=== PATIENT | female | born 1995 | race Caucasian/White ===

== ENCOUNTER → 2016-10-06 | Outpatient (CLI) | payer OTHER ==
[~2016-10-06] MED LIST: ACET50TA PO; DIBU1OI TOP; DOCU10ELUD PO; FERR325T3 PO; IBUP600T26 PO; KEFL500C7 PO; KEPP750T3 PO; LAMI200T PO; PERC5TAB6 PO; PERCOCET PO; STUACAP PO; TYLE325T5 PO; VITMTA PO
[2016-10-06 17:17] LABS: CONTROL LINE HCG INT CTR LINE PRESENT
== END ==
LOC: M LAB 15:46
PROVIDERS: ATTEND Physician Assistant Medical
DX: Z33.1 Pregnant state, incidental (principal)

== ENCOUNTER 2016-10-23 12:25 | Emergency (ER) | payer OTHER ==
[2016-10-23 14:59] LABS: BASO % 0.1 % (0.0-1.0); EOS % 0.4 % (0.0-3.0); LARGE UNSTAINED CELL # 0.1 K/mm3 (0.0-0.4); LARGE UNSTAINED CELL % 1.2 % (0.0-4.0); LYMPH # 0.8 K/mm3 (1.5-6.5); MEAN CORPUSCULAR HEMOGLOBIN 28.2 pg (27.0-33.0); MEAN CORPUSCULAR HGB CONC 33.1 g/dl (32.0-36.5); MEAN CORPUSCULAR VOLUME 85.2 fl (80.0-96.0); MONO # 0.6 K/mm3 (0.0-0.8); MONO % 6.8 % (0.0-5.0); NEUTROPHILS # 6.7 K/mm3 (1.8-7.7); NEUTROPHILS % 81.5 % (36.0-66.0); PLATELET COUNT, AUTOMATED 162 k/mm3 (150-450); RED CELL DISTRIBUTION WIDTH 14.5 % (11.5-14.5); WHITE BLOOD COUNT 8.2 K/mm3 (4.0-10.0)
[2016-10-23] MEDS ORDERED: METOCLOPRAMIDE 10 MG TAB As Ordered ONE (15:10)
[2016-10-23] MEDS ORDERED: ACETAMINOPHEN 325 MG TAB As Ordered ONE ×2 (15:10→15:11)
[2016-10-23 15:20] LABS: ALBUMIN 2.9 GM/DL (3.2-5.2); ALBUMIN/GLOBULIN RATIO 0.73 (1.00-1.93); ALKALINE PHOSPHATASE 102 U/L (45-117); ALT/SGPT 10 U/L (12-78); ANION GAP 8 MEQ/L (8-16); AST/SGOT 3 U/L (15-37); BILIRUBIN,DIRECT 0.1 MG/DL (0.0-0.2); BILIRUBIN,TOTAL 0.7 MG/DL (0.2-1.0); BLOOD UREA NITROGEN 7 MG/DL (7-18); CALCIUM LEVEL 8.5 MG/DL (8.5-10.1); CARBON DIOXIDE LEVEL 26 MEQ/L (21-32); CHLORIDE LEVEL 103 MEQ/L (98-107); CREATININE FOR GFR 0.71 MG/DL (0.55-1.02); GLOMERULAR FILTRATION RATE > 60.0 (>60); GLUCOSE, FASTING 96 MG/DL (70-105); POTASSIUM SERUM 4.2 MEQ/L (3.5-5.1); SODIUM LEVEL 137 MEQ/L (136-145); TOTAL PROTEIN 6.9 GM/DL (6.4-8.2)
[2016-10-23 15:42] LABS: HCG, SERUM QUANTITATIVE 32597 MIU/ML
[2016-10-23] MEDS ORDERED: NITROFURANTOIN (MACROBID) 100 MG CAP As Ordered ONE (17:36)
--- NOTE | 2016-10-23 17:36 | REP ---
Obstetric ultrasound: There are no prior studies. There is a single intrauterine gestation in a vertex presentation. There is movement. The heart rate is 157 beats per minute. The placenta is posterior and lateral right lateral with no previa or abruptio. Placenta is grade 0 maturity. The amniotic fluid volume subjectively is normal. The cervix is 3.3 cm length. The maternal adnexa and cul-de-sac are unremarkable. Based on today's measurements gestational age is 20 weeks 2 days with an KALE of 03/10/2017. weight is 368 grams (0 pounds, 12 ounces). This is the 58th percentile for 20 weeks 2 days The following anatomic structures are identified and are unremarkable: Cranium, choroid plexus, cavum septum pellucidum, posterior fossa/cerebellum, face/facial profile, lungs, four-chamber heart, diaphragm, stomach, cord insertion, three-vessel cord, bladder, spine and upper lower extremities. Suboptimally demonstrated are the cardiac right and left ventricular outflow tracts and kidneys. A followup study dedicated to these structures might be considered. Otherwise, no anomalies are identified. . Signed by Thomas Barker MD 10/23/2016 05:27 P
--- NOTE | 2016-10-23 17:46 | EDDOCDS ---
Nurse's Notes [facility] Name: Ashtyn Curtis Age: 21 yrs Sex: Female : 1995 Arrival Date: 10/23/2016 Time: 12:25 Bed PD Private MD: NO PRIMARY PHYSICIAN, . Diagnosis: Urinary tract infection, site not specified;Calculus of kidney and ureter-Moderate Right-Sided Hydronephrosis, normal metabolic panel; related conditions, unspecified, second trimester-SIUP 20 weeks 2 days Presentation: 10/23 13:05 Presenting complaint: Patient states: right flank pain started early this morning, I've cjh had kidney stones before, it's calmed down a lot but still having pain and I am don't know how far. Acute neurological deficits are not present. Mechanism of Injury: No Mechanism of Injury. Adult Sepsis Screening: The patient does not have new or worsening altered mentation. Patient's respiratory rate is less than 22. Systolic blood pressure is greater than 100. Patient has a qSOFA score of 0- Negative Sepsis Screen. Suicide/Homicide risk assessment- the patient denies having any suicidal and/or homicidal ideations and does not present with any other emotional, behavioral or mental health complaints. Status: Patient is not a information services consultant or dependent. Transition of care: patient was not received from another setting of care. 13:05 Acuity: GRACE Level 3 [facility] 13:05 Method Of Arrival: Walkin/Carried/Asstd [facility] Triage Assessment: 13:08 General: Appears in no apparent distress, comfortable, Behavior is appropriate for age, [facility] cooperative. Pain: Location: posterior aspect of right lateral abdomen Pain currently is 7 out of 10 on a pain scale. HIV screening NA for this visit Offered previously. : Reports none. Musculoskeletal: Range of motion intact in all extremities. ALLIANCES CONSULTANT: 13:08 LMP N/A - Recent , patient states she is but no menses since delivered [facility] 6-months previous so states no idea how far along, had home test and blood work to confirm reported Historical: - Allergies: Ibuprofen (Hives); - Home Meds: 1. ferrous sulfate 325 mg (65 mg iron) Oral TbEC daily (Last dose: Unknown) - PMHx: Anemia; - PSHx: ; - Social history: Smoking status: Patient uses tobacco products, heavy tobacco smoker. No barriers to communication noted. - Family history: Not pertinent. - : The pt / caregiver states he / she is not on anticoagulants. Home medication list is obtained from the patient. - Exposure Risk Screening:: None identified. Screenin:13 Screening information is obtained from the patient. Fall risk: No risks identified. kr3 Assistance ADL's: requires no assistance with activities of daily living. Abuse/DV Screen: The patient / caregiver reports he/she is: not in a situation that causes fear, pain or injury. Nutritional screening: No deficits noted. Advance Directives: Currently, there is no health care proxy. home support is adequate. Assessment: 15:13 Reassessment: Patient appears in no apparent distress at this time. Pain: Location: kr3 right flank Pain currently is 6 out of 10 on a pain scale. Respiratory: Respiratory effort is even, unlabored. Derm: Skin is normal. 17:06 Reassessment: Patient appears in no apparent distress at this time. Reassessment: kr3 informed that provider would be in to discuss results after speaking with Dr Yeboha. Pain: Location: right flank Pain currently is 3 out of 10 on a pain scale. 17:45 General: Appears in no apparent distress. Pain: Denies pain. Neurological: Level of ld5 Consciousness is awake, alert. Respiratory: Airway is patent Respiratory effort is even, unlabored. Vital Signs: 12:27 BP 91 / 59; Pulse 120; Resp 18 S; Temp 97.9(O); Pulse Ox 98% on R/A; Weight 49.9 kg gr2 (M); Height 5 ft. 2 in. (157.48 cm) (R); Pain 6/10; 17:09 BP 105 / 63; Pulse 96; Resp 16; Temp 97.6(O); Pulse Ox 100% on R/A; kr3 17:38 BP 99 / 57; Pulse 99; Resp 16; Temp 98.4(TE); Pulse Ox 98% on R/A; Pain 0/10; sew 12:27 Body Mass Index 20.12 (49.90 kg, 157.48 cm) gr2 Vitals: 12:27 Log In Time: October 23, 2016 at 12:27. gr2 ED Course: 12:26 Patient visited by Rito Hamilton. gr2 12:26 Patient moved to Waiting gr2 12:27 NO PRIMARY PHYSICIAN, . is Private Physician. gr2 12:29 Patient visited by Rito Hamilton. gr2 12:29 Patient moved to Pre RCE gr2 13:07 Triage Initiated cjh 14:21 Patient moved to PR2 / 26 sew 14:37 BLOOD CULTURES Sent. sew 14:37 BMP Sent. sew 14:37 CBC with Diff Sent. sew 14:37 Lipase Sent. sew 14:37 Liver Profile Sent. sew 14:37 Urinalysis Sent. sew 14:37 Labs drawn. (by ED staff). Sent per order to lab. Labs/Blood culture drawn Urine sew collected. Clean catch specimen. Urine specimen sent to lab. 14:39 Patient visited by Effie Saeed. sew 14:43 Patient visited by Effie Saeed. sew 14:43 BLOOD CULTURES Sent. sew 14:43 Labs/Blood culture drawn. sew 14:44 Patient moved to Triage 1 kr3 15:01 Yaritza Erazo PA-C is PHCP. ef1 15:01 Jose G Sanches MD is Attending Physician. ef1 15:02 Patient visited by Yaritza Erazo PA-C. ef1 15:12 Patient moved to TR1 kr3 15:14 The patient / caregiver is instructed regarding the plan of care and ED course. Patient kr3 has correct armband on for positive identification. 15:14 Urine Culture Sent. kr3 15:15 [facility] Payment Agreement was scanned into [employer] and attached to record. gjb 15:18 Patient name changed from Ashtyn\S\Tamar\S\Curtis\S\ to Ashtyn\S\P\S\Curtis. EDMS 15:29 Patient visited by Yaritza Erazo PA-C. ef1 16:11 Patient visited by Yaritza Erazo PA-C. ef1 16:52 Patient visited by Yaritza Erazo PA-C. ef1 17:04 Patient moved to I6 kr3 17:05 Patient moved to PD2 kr3 17:09 No IV's were initiated during this patient's visit. No procedures done that require kr3 assistance. 17:31 Patient visited by Yaritza Erazo PA-C. ef1 17:37 Nam Mcdaniel is Referral Physician. ef1 17:38 US OBS FRANNY GEST Returned. kr3 17:39 Patient visited by Effie Saeed. sew 17:46 Patient visited by Pao Campoverde RN. ld5 Administered Medications: 15:13 Drug: Metoclopramide 10 mg [metoclopramide 10 mg tablet (1 tabs)] Route: PO; kr3 15:13 Drug: Acetaminophen 650 mg [acetaminophen 325 mg tablet (2 tabs)] Route: PO; kr3 17:37 Drug: Nitrofurantoin 100 mg Route: PO; kr3 Point of Care Testing: Urine : 14:38 hCG Reading: Positive; Control Reading: Positive; sew Ranges: Order Results: Lab Order: BMP; SPEC'M 10/23/16 14:33 Test: GLUCOSE, FASTING; Value: 96; Range: 70-105; Units: MG/DL; Status: F Test: BLOOD UREA NITROGEN; Value: 7; Range: 7-18; Units: MG/DL; Status: F Test: CREATININE FOR GFR; Value: 0.71; Range: 0.55-1.02; Units: MG/DL; Status: F Test: GLOMERULAR FILTRATION RATE; Value: > 60.0; Range: >60; Status: F Test: SODIUM LEVEL; Value: 137; Range: 136-145; Units: MEQ/L; Status: F Test: POTASSIUM SERUM; Value: 4.2; Range: 3.5-5.1; Units: MEQ/L; Status: F Test: CHLORIDE LEVEL; Value: 103; Range: 98-107; Units: MEQ/L; Status: F Test: CARBON DIOXIDE LEVEL; Value: 26; Range: 21-32; Units: MEQ/L; Status: F Test: ANION GAP; Value: 8; Range: 8-16; Units: MEQ/L; Status: F Test: CALCIUM LEVEL; Value: 8.5; Range: 8.5-10.1; Units: MG/DL; Status: F Test Note: ; Units are mL/min/1.73 m2 Chronic Kidney Disease Staging per NKF: Stage I & II GFR >=60 Normal to Mildly Decreased Stage III GFR 30-59 Moderately Decreased Stage IV GFR 15-29 Severely Decreased Stage V GFR <15 Very Little GFR Left ESRD GFR <15 on [employer]IN DRIVER Lab Order: CBC with Diff; SPEC'M 10/23/16 14:33 Test: WHITE BLOOD COUNT; Value: 8.2; Range: 4.0-10.0; Units: K/mm3; Status: F Test: RED BLOOD COUNT; Value: 3.77; Range: 4.00-5.40; Abnormal: Below low normal; Units: M/mm3; Status: F Test: HEMOGLOBIN; Value: 10.6; Range: 12.0-16.0; Abnormal: Below low normal; Units: g/dl; Status: F Test: HEMATOCRIT; Value: 32.1; Range: 36.0-47.0; Abnormal: Below low normal; Units: %; Status: F Test: MEAN CORPUSCULAR VOLUME; Value: 85.2; Range: 80.0-96.0; Units: fl; Status: F Test: MEAN CORPUSCULAR HEMOGLOBIN; Value: 28.2; Range: 27.0-33.0; Units: pg; Status: F Test: MEAN CORPUSCULAR HGB CONC; Value: 33.1; Range: 32.0-36.5; Units: g/dl; Status: F Test: RED CELL DISTRIBUTION WIDTH; Value: 14.5; Range: 11.5-14.5; Units: %; Status: F Test: PLATELET COUNT, AUTOMATED; Value: 162; Range: 150-450; Units: k/mm3; Status: F Test: NEUTROPHILS %; Value: 81.5; Range: 36.0-66.0; Abnormal: Above high normal; Units: %; Status: F Test: LYMPH %; Value: 10.0; Range: 24.0-44.0; Abnormal: Below low normal; Units: %; Status: F Test: MONO %; Value: 6.8; Range: 0.0-5.0; Abnormal: Above high normal; Units: %; Status: F Test: EOS %; Value: 0.4; Range: 0.0-3.0; Units: %; Status: F Test: BASO %; Value: 0.1; Range: 0.0-1.0; Units: %; Status: F Test: LARGE UNSTAINED CELL %; Value: 1.2; Range: 0.0-4.0; Units: %; Status: F Test: NEUTROPHILS #; Value: 6.7; Range: 1.8-7.7; Units: K/mm3; Status: F Test: LYMPH #; Value: 0.8; Range: 1.5-6.5; Abnormal: Below low normal; Units: K/mm3; Status: F Test: MONO #; Value: 0.6; Range: 0.0-0.8; Units: K/mm3; Status: F Test: EOS #; Value: 0.0; Range: 0.0-0.50; Units: K/mm3; Status: F Test: BASO #; Value: 0.0; Range: 0.0-0.2; Units: K/mm3; Status: F Test: LARGE UNSTAINED CELL #; Value: 0.1; Range: 0.0-0.4; Units: K/mm3; Status: F Lab Order: Lipase; [facility] 10/23/16 14:33 Test: LIPASE; Value: 55; Range: 73-393; Abnormal: Below low normal; Units: U/L; Status: F Lab Order: Liver Profile; [facility] 10/23/16 14:33 Test: AST/SGOT; Value: 3; Range: 15-37; Abnormal: Below low normal; Units: U/L; Status: F Test: ALT/SGPT; Value: 10; Range: 12-78; Abnormal: Below low normal; Units: U/L; Status: F Test: ALKALINE PHOSPHATASE; Value: 102; Range: 45-117; Units: U/L; Status: F Test: BILIRUBIN,TOTAL; Value: 0.7; Range: 0.2-1.0; Units: MG/DL; Status: F Test: BILIRUBIN,DIRECT; Value: 0.1; Range: 0.0-0.2; Units: MG/DL; Status: F Test: TOTAL PROTEIN; Value: 6.9; Range: 6.4-8.2; Units: GM/DL; Status: F Test: ALBUMIN; Value: 2.9; Range: 3.2-5.2; Abnormal: Below low normal; Units: GM/DL; Status: F Test: ALBUMIN/GLOBULIN RATIO; Value: 0.73; Range: 1.00-1.93; Abnormal: Below low normal; Status: F Lab Order: Urinalysis; SPEC' 10/23/16 14:33 Test: APPEARANCE, URINE; Value: TURBID; Range: CLEAR; Abnormal: Above high normal; Status: F Test: COLOR, URINE; Value: LUCI; Range: YELLOW; Status: F Test: PH,URINE; Value: 6.0; Range: 5.0-9.0; Units: UNITS; Status: F Test: SPECIFIC GRAVITY URINE AUTO; Value: 1.009; Range: 1.002-1.035; Status: F Test: PROTEIN, URINE AUTO; Value: 2+; Range: NEGATIVE; Abnormal: Above high normal; Units: mg/dL; Status: F Test: GLUCOSE, URINE (UA) AUTO; Value: NEGATIVE; Range: NEGATIVE; Units: mg/dL; Status: F Test: KETONE, URINE AUTO; Value: NEGATIVE; Range: NEGATIVE; Units: mg/dL; Status: F Test: UROBILINOGEN, URINE AUTO; Value: 0.2; Range: 0.0-2.0; Units: mg/dL; Status: F Test: BILIRUBIN, URINE AUTO; Value: NEGATIVE; Range: NEGATIVE; Status: F Test: NITRITE, URINE AUTO; Value: NEGATIVE; Range: NEGATIVE; Status: F Test: LEUKOCYTE ESTERASE, URINE AUTO; Value: 3+; Range: NEGATIVE; Abnormal: Above high normal; Status: F Test: BLOOD, URINE BLOOD; Value: 1+; Range: NEGATIVE; Abnormal: Above high normal; Status: F Test: WBC, URINE AUTO; Value: TNTC; Range: 0-3; Abnormal: Above high normal; Units: /HPF; Status: F Test: RBC, URINE AUTO; Value: 24; Range: 0-3; Abnormal: Above high normal; Units: /HPF; Status: F Test: BACTERIA, URINE AUTO; Value: 3+; Range: NEGATIVE; Abnormal: Above high normal; Status: F Test: SQUAMOUS EPITHELIAL CELL UR AU; Value: 9; Range: 0-6; Units: /HPF; Status: F Test: MUCUS, URINE; Value: SMALL; Range: NEGATIVE; Status: F Test: HYALINE CAST, URINE AUTO; Value: 0; Range: 0-1; Units: /LPF; Status: F Lab Order: HCG, SERUM QUANTITATIVE; SPEC'M 10/23/16 14:33 Test: HCG, SERUM QUANTITATIVE; Value: 34475; Units: MIU/ML; Status: F Test Note: ; GESTATIONAL AGE APPROXIMATE HCG RANGE (MIU/ML) 0.2-1 WEEK 5-50 1-2 WEEKS 50-500 2-3 WEEKS 100-5,000 3-4 WEEKS 500-10,000 4-5 WEEKS 1,000-50,000 5-6 WEEKS 10,000-100,000 6-8 WEEKS 15,000-200,000 2-3 MONTHS 10,000-100,000 NON FEMALES LESS THAN 3.0 Patient samples may contain human heterophilic antibodies that could react with immunoassays to give falsely elevated or depressed results. This assay has been designed to minimize interference from heterophilic antibodies. Elevated hCG levels have also been associated with trophoblastic disease and nontrophoblastic neoplasms. The possibility of having these diseases should be considered before a diagnosis of is made. This test is not intended for use as a surrogate marker for aiding in the diagnosis or monitoring the treatment of cancer patients. [employer] methodology. Radiology Order: US OBS SINGEL GEST Test: US OBS SINGEL GEST REASON FOR EXAMINATION: abd pain, ; Obstetric ultrasound:; ; There are no prior studies.; ; There is a single intrauterine gestation in a vertex presentation. There is; movement. The heart rate is 157 beats per minute. The placenta is; posterior and lateral right lateral with no previa or abruptio. Placenta is; grade 0 maturity.; ; The amniotic fluid volume subjectively is normal.; ; The cervix is 3.3 cm length.; ; The maternal adnexa and cul-de-sac are unremarkable.; ; Based on today's measurements gestational age is 20 weeks 2 days with an KALE of; 03/10/2017.; ; weight is 368 grams (0 pounds, 12 ounces). This is the 58th percentile for; 20 weeks 2 days; ; The following anatomic structures are identified and are unremarkable:; ; Cranium, choroid plexus, cavum septum pellucidum, posterior fossa/cerebellum,; face/facial profile, lungs, four-chamber heart, diaphragm, stomach, cord; insertion, three-vessel cord, bladder, spine and upper lower extremities.; ; Suboptimally demonstrated are the cardiac right and left ventricular outflow; tracts and kidneys. A followup study dedicated to these structures might be; considered.; ; Otherwise, no anomalies are identified. .; ; ; Signed by; Thomas Barker MD 10/23/2016 05:27 P; Outcome: 17:06 Ultrasound Study completed. kr3 17:37 Discharge ordered by Provider. ef1 17:45 Discharge Assessment: Patient awake, alert and oriented x 3. No cognitive and/or ld5 functional deficits noted. Patient verbalized understanding of disposition instructions. patient administered narcotics - no. The following High Risk Discharge criteria are identified: None. Discharged to home ambulatory. Condition: stable. Discharge instructions given to patient, Instructed on discharge instructions, follow up and referral plans. medication usage, Demonstrated understanding of instructions, medications, Pt was receptive of discharge instructions/ teaching. Prescriptions given X 2. Property :Personal belongings accompany Pt. 17:46 Patient left the ED. ld5 Signatures: Dispatcher [employer] Celina Betancourt,RN RN kr3 Yaritza Erazo, PA-C PA-C ef1 Pao Campoverde,RN RN ld5 Kristine GuoRN RN basim Christophe, Rito Ray 2 Guera [place] Corrections: (The following items were deleted from the chart) 15:14 15:08 HCG, SERUM QUANTITATIVE+LAB sent. tana CORTES MTDAngela
--- NOTE | 2016-10-23 17:46 | EDDOCDS ---
Physician Documentation [facility] Name: Ashtyn Curtis Age: 21 yrs Sex: Female : 1995 Arrival Date: 10/23/2016 Time: 12:25 Bed PD Private MD: NO PRIMARY PHYSICIAN, . Disposition: 10/23/16 17:37 Discharged to Home/Self Care. Impression: Urinary tract infection, site not specified, Calculus of kidney and ureter - Moderate Right-Sided Hydronephrosis, normal metabolic panel, related conditions, unspecified, second trimester - SIUP 20 weeks 2 days. - Condition is Stable. - Discharge Instructions: Kidney Stones, [id number], Urinary Tract Infection, Mpao-va-Mwuy, Abdominal Pain During , Unmq-xi-[id number], Second Trimester of , [id number]. - Prescriptions for Reglan 10 mg Oral Tablet - take 1 tablet by ORAL route every 6 hours take 30 minutes before meals and at bedtime; 20 tablet. Macrobid 100 mg Oral Capsule - take 100 milligram by ORAL route every 12 hours for 10 days; 20 capsule. - Medication Reconciliation, Local Pharmacy Hours form. - Follow up: Nam Mcdaniel; When: 1 - 2 days; Reason: Further diagnostic work-up, Recheck today's complaints, Continuance of care. Follow up: Emergency Department; Reason: Worsening of conditions. - Problem is new. - Symptoms have improved. Historical: - Allergies: Ibuprofen (Hives); - Home Meds: 1. ferrous sulfate 325 mg (65 mg iron) Oral TbEC daily (Last dose: Unknown) - PMHx: Anemia; - PSHx: ; - Social history: Smoking status: Patient uses tobacco products, heavy tobacco smoker. No barriers to communication noted. - Family history: Not pertinent. - : The pt / caregiver states he / she is not on anticoagulants. Home medication list is obtained from the patient. - Exposure Risk Screening:: None identified. CLIENT ADVISOR: 10/23 13:08 LMP N/A - Recent , patient states she is but no menses since [facility] previous so states no idea how far along, had home test and blood work to confirm reported Vital Signs: 12:27 BP 91 / 59; Pulse 120; Resp 18 S; Temp 97.9(O); Pulse Ox 98% on R/A; Weight 49.9 kg / gr2 110.01 lbs (M); Height 5 ft. 2 in. (157.48 cm) (R); Pain 6/10; 17:09 BP 105 / 63; Pulse 96; Resp 16; Temp 97.6(O); Pulse Ox 100% on R/A; kr3 17:38 BP 99 / 57; Pulse 99; Resp 16; Temp 98.4(TE); Pulse Ox 98% on R/A; Pain 0/10; sew 12:27 Body Mass Index 20.12 (49.90 kg, 157.48 cm) gr2 MDM: 14:07 -Blood Culture (Adults Only), peripheral from different site, or from device/port/PICC kr3 etc. if present ordered. 14:07 If pre-RCE wait time >60 minutes, inform reg. staff to do full reg ordered. kr3 14:07 If pt is female >10yo <50yo order UCG ordered. kr3 14:07 Undress patient appropriately for examination ordered. kr3 14:07 UCG by Nursing ordered. kr3 14:08 BMP Ordered. EDMS 14:08 CBC with Diff Ordered. EDMS 14:08 Lipase Ordered. EDMS 14:08 Liver Profile Ordered. EDMS 14:08 Urinalysis Ordered. EDMS 14:20 -Blood Culture (Adults Only), peripheral from different site, or from device/port/PICC sew etc. if present complete. 14:21 BLOOD CULTURES Ordered. EDMS 14:39 BLOOD CULTURES Ordered. EDMS 15:05 CBC with Diff Reviewed. ef1 15:06 Metoclopramide 10 mg PO once ordered. ef1 15:06 Acetaminophen Tablet 650 mg PO once ordered. ef1 15:07 Renal US Ordered. EDMS 15:08 NOTHING BY MOUTH+DIET ordered. EDMS 15:13 Urine Culture Ordered. EDMS 15:14 Financial registration complete. gjb 15:14 HCG, SERUM QUANTITATIVE Ordered. EDMS 15:15 [facility] Payment Agreement was scanned into ebridge and attached to record. gjb 16:30 US OBS SINGEL GEST Ordered. EDMS 16:53 Lipase Reviewed. ef1 16:53 Liver Profile Reviewed. ef1 16:53 Urinalysis Reviewed. ef1 16:53 BMP Reviewed. ef1 16:53 HCG, SERUM QUANTITATIVE Reviewed. ef1 17:34 Nitrofurantoin 100 mg PO once ordered. ef1 Point of Care Testing: Urine : 14:38 hCG Reading: Positive; Control Reading: Positive; sew Ranges: Administered Medications: 15:13 Drug: Metoclopramide 10 mg [metoclopramide 10 mg tablet (1 tabs)] Route: PO; kr3 15:13 Drug: Acetaminophen 650 mg [acetaminophen 325 mg tablet (2 tabs)] Route: PO; kr3 17:37 Drug: Nitrofurantoin 100 mg Route: PO; kr3 Signatures: Dispatcher [employer] EDMS Celina TaylorRN RN kr3 Yaritza Erazo PA-C PAMel ef1 Poa CampoverdeRN RN ld5 Kristine GuoRN RN [facility] Christophe, Guera [place] The chart was reviewed and I authenticate all verbal orders and agree with the evaluation and treatment provided.Corrections: (The following items were deleted from the chart) 15:14 15:08 HCG, SERUM QUANTITATIVE+LAB ordered. EDMS EDMS 16:30 15:07 1ST TRIMESTER US+US ordered. EDMS EDMS Attachments: 15:15 [facility] Payment Agreement marilou MTDD
--- NOTE | 2016-10-24 08:46 | REP ---
Urinary tract sonography: History: Renal colic. . Findings: Scanning at the level of the urinary bladder shows emptying ureteral jets from the left ureter only on color Doppler interrogation of the bladder lumen. No right ureteral jet is seen. There is moderate hydronephrosis affecting the right kidney. Renal cortical echogenicity pattern is normal. No hydronephrosis is seen on the left. The right kidney measures 10.2 x 4.5 x 5.1 cm. Left renal dimensions are 10.0 x 4.1 x 5.1 cm. No renal mass or cyst is seen. No stone is visible. Resistive indices are 0.57 on the left and 0.63 on the right. Impression: Moderate right-sided hydronephrosis. Somewhat elevated resistive index. Absence of ureteral emptying jet from the right ureter on color Doppler interrogation of the bladder lumen. Findings consistent with obstructive uropathy on the right side. Signed by Max Gonzalez MD 10/24/2016 09:04 A
--- NOTE | 2016-10-25 18:46 | EDDOCDS ---
Physician Documentation [facility] Name: Ashtyn Curtis Age: 21 yrs Sex: Female : 1995 Arrival Date: 10/23/2016 Time: 12:25 Bed PD Private MD: NO PRIMARY PHYSICIAN, . Disposition: 10/23/16 17:37 Discharged to Home/Self Care. Impression: Urinary tract infection, site not specified, Calculus of kidney and ureter - Moderate Right-Sided Hydronephrosis, normal metabolic panel, related conditions, unspecified, second trimester - SIUP 20 weeks 2 days. - Condition is Stable. - Discharge Instructions: Kidney Stones, Dbvc-it-Zlqd, Urinary Tract Infection, Dbqt-de-Vsgy, Abdominal Pain During , Rwec-pj-Teey, Second Trimester of , Orwo-ro-Csew. - Prescriptions for Reglan 10 mg Oral Tablet - take 1 tablet by ORAL route every 6 hours take 30 minutes before meals and at bedtime; 20 tablet. Macrobid 100 mg Oral Capsule - take 100 milligram by ORAL route every 12 hours for 10 days; 20 capsule. - Medication Reconciliation, Local Pharmacy Hours form. - Follow up: Nam Mcdaniel; When: 1 - 2 days; Reason: Further diagnostic work-up, Recheck today's complaints, Continuance of care. Follow up: Emergency Department; Reason: Worsening of conditions. - Problem is new. - Symptoms have improved. Historical: - Allergies: Ibuprofen (Hives); - Home Meds: 1. ferrous sulfate 325 mg (65 mg iron) Oral TbEC daily (Last dose: Unknown) - PMHx: Anemia; - PSHx: ; - Social history: Smoking status: Patient uses tobacco products, heavy tobacco smoker. No barriers to communication noted. - Family history: Not pertinent. - : The pt / caregiver states he / she is not on anticoagulants. Home medication list is obtained from the patient. - Exposure Risk Screening:: None identified. 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 2 in. (157.48 cm) (R); Pain 6/10; 17:09 BP 105 / 63; Pulse 96; Resp 16; Temp 97.6(O); Pulse Ox 100% on R/A; kr3 17:38 BP 99 / 57; Pulse 99; Resp 16; Temp 98.4(TE); Pulse Ox 98% on R/A; Pain 0/10; sew 12:27 Body Mass Index 20.12 (49.90 kg, 157.48 cm) gr2 MDM: 14:07 -Blood Culture (Adults Only), peripheral from different site, or from device/port/PICC kr3 etc. if present ordered. 14:07 If pre-RCE wait time >60 minutes, inform reg. staff to do full reg ordered. kr3 14:07 If pt is female >10yo <50yo order UCG ordered. kr3 14:07 Undress patient appropriately for examination ordered. kr3 14:07 UCG by Nursing ordered. kr3 14:08 BMP Ordered. EDMS 14:08 CBC with Diff Ordered. EDMS 14:08 Lipase Ordered. EDMS 14:08 Liver Profile Ordered. EDMS 14:08 Urinalysis Ordered. EDMS 14:20 -Blood Culture (Adults Only), peripheral from different site, or from device/port/PICC sew etc. if present complete. 14:21 BLOOD CULTURES Ordered. EDMS 14:39 BLOOD CULTURES Ordered. EDMS 15:05 CBC with Diff Reviewed. ef1 15:06 Metoclopramide 10 mg PO once ordered. ef1 15:06 Acetaminophen Tablet 650 mg PO once ordered. ef1 15:07 Renal US Ordered. EDMS 15:08 NOTHING BY MOUTH+DIET ordered. EDMS 15:13 Urine Culture Ordered. EDMS 15:14 Financial registration complete. gjb 15:14 HCG, SERUM QUANTITATIVE Ordered. EDMS 15:15 [facility] Payment Agreement was scanned into [employer] and attached to record. gjb 16:30 US OBS SINGEL GEST Ordered. EDMS 16:53 Lipase Reviewed. ef1 16:53 Liver Profile Reviewed. ef1 16:53 Urinalysis Reviewed. ef1 16:53 BMP Reviewed. ef1 16:53 HCG, SERUM QUANTITATIVE Reviewed. ef1 17:34 Nitrofurantoin 100 mg PO once ordered. ef1 10/24 18:08 T-Sheet-- Draft Copy was scanned into [employer] and attached to record. shiraz Point of Care Testing: Urine : 10/23 14:38 hCG Reading: Positive; Control Reading: Positive; sew Ranges: Administered Medications: 15:13 Drug: Metoclopramide 10 mg [metoclopramide 10 mg tablet (1 tabs)] Route: PO; kr3 15:13 Drug: Acetaminophen 650 mg [acetaminophen 325 mg tablet (2 tabs)] Route: PO; kr3 17:37 Drug: Nitrofurantoin 100 mg Route: PO; kr3 Signatures: Dispatcher [employer] EDMS Celina Taylor RN RN kr3 Yaritza Erazo, MITCHELL PAMel ef1 Pao Campoverde RN RN ld5 Kristine GuoRN CATHERINE [facility] Christophe, Guera Barajas Kathie klr The chart was reviewed and I authenticate all verbal orders and agree with the evaluation and treatment provided.Corrections: (The following items were deleted from the chart) 15:14 15:08 HCG, SERUM QUANTITATIVE+LAB ordered. EDMS EDMS 16:30 15:07 1ST TRIMESTER US+US ordered. EDMS EDMS Attachments: 15:15 [facility] Payment Agreement [facility] 10/24 18:08 T-Sheet-- Draft Copy klr Chart Complete MTDD
--- NOTE | 2016-10-25 18:46 | EDDOCDS ---
Physician Documentation [facility] Name: Ashtyn Curtis Age: 21 yrs Sex: Female : 1995 Arrival Date: 10/23/2016 Time: 12:25 Bed PD Private MD: NO PRIMARY PHYSICIAN, . Disposition: 10/23/16 17:37 Discharged to Home/Self Care. Impression: Urinary tract infection, site not specified, Calculus of kidney and ureter - Moderate Right-Sided Hydronephrosis, normal metabolic panel, related conditions, unspecified, second trimester - SIUP 20 weeks 2 days. - Condition is Stable. - Discharge Instructions: Kidney Stones, Avvr-vh-Dxtc, Urinary Tract Infection, Avqs-ya-Drfe, Abdominal Pain During , Nvyq-ml-Udmm, Second Trimester of , Jtso-mf-Cids. - Prescriptions for Reglan 10 mg Oral Tablet - take 1 tablet by ORAL route every 6 hours take 30 minutes before meals and at bedtime; 20 tablet. Macrobid 100 mg Oral Capsule - take 100 milligram by ORAL route every 12 hours for 10 days; 20 capsule. - Medication Reconciliation, Local Pharmacy Hours form. - Follow up: Nam Mcdaniel; When: 1 - 2 days; Reason: Further diagnostic work-up, Recheck today's complaints, Continuance of care. Follow up: Emergency Department; Reason: Worsening of conditions. - Problem is new. - Symptoms have improved. Historical: - Allergies: Ibuprofen (Hives); - Home Meds: 1. ferrous sulfate 325 mg (65 mg iron) Oral TbEC daily (Last dose: Unknown) - PMHx: Anemia; - PSHx: ; - Social history: Smoking status: Patient uses tobacco products, heavy tobacco smoker. No barriers to communication noted. - Family history: Not pertinent. - : The pt / caregiver states he / she is not on anticoagulants. Home medication list is obtained from the patient. - Exposure Risk Screening:: None identified. 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 2 in. (157.48 cm) (R); Pain 6/10; 17:09 BP 105 / 63; Pulse 96; Resp 16; Temp 97.6(O); Pulse Ox 100% on R/A; kr3 17:38 BP 99 / 57; Pulse 99; Resp 16; Temp 98.4(TE); Pulse Ox 98% on R/A; Pain 0/10; sew 12:27 Body Mass Index 20.12 (49.90 kg, 157.48 cm) gr2 MDM: 14:07 -Blood Culture (Adults Only), peripheral from different site, or from device/port/PICC kr3 etc. if present ordered. 14:07 If pre-RCE wait time >60 minutes, inform reg. staff to do full reg ordered. kr3 14:07 If pt is female >10yo <50yo order UCG ordered. kr3 14:07 Undress patient appropriately for examination ordered. kr3 14:07 UCG by Nursing ordered. kr3 14:08 BMP Ordered. EDMS 14:08 CBC with Diff Ordered. EDMS 14:08 Lipase Ordered. EDMS 14:08 Liver Profile Ordered. EDMS 14:08 Urinalysis Ordered. EDMS 14:20 -Blood Culture (Adults Only), peripheral from different site, or from device/port/PICC sew etc. if present complete. 14:21 BLOOD CULTURES Ordered. EDMS 14:39 BLOOD CULTURES Ordered. EDMS 15:05 CBC with Diff Reviewed. ef1 15:06 Metoclopramide 10 mg PO once ordered. ef1 15:06 Acetaminophen Tablet 650 mg PO once ordered. ef1 15:07 Renal US Ordered. EDMS 15:08 NOTHING BY MOUTH+DIET ordered. EDMS 15:13 Urine Culture Ordered. EDMS 15:14 Financial registration complete. gjb 15:14 HCG, SERUM QUANTITATIVE Ordered. EDMS 15:15 [facility] [place] Agreement was scanned into [employer] and attached to record. gjb 16:30 US OBS SINGEL GEST Ordered. EDMS 16:53 Lipase Reviewed. ef1 16:53 Liver Profile Reviewed. ef1 16:53 Urinalysis Reviewed. ef1 16:53 BMP Reviewed. ef1 16:53 HCG, SERUM QUANTITATIVE Reviewed. ef1 17:34 Nitrofurantoin 100 mg PO once ordered. ef1 10/24 18:08 T-Sheet-- Draft Copy was scanned into [employer] and attached to record. shiraz Point of Care Testing: Urine : 10/23 14:38 hCG Reading: Positive; Control Reading: Positive; sew Ranges: Administered Medications: 15:13 Drug: Metoclopramide 10 mg [metoclopramide 10 mg tablet (1 tabs)] Route: PO; kr3 15:13 Drug: Acetaminophen 650 mg [acetaminophen 325 mg tablet (2 tabs)] Route: PO; kr3 17:37 Drug: Nitrofurantoin 100 mg Route: PO; kr3 Signatures: Dispatcher [employer] EDMS Celina Taylor RN RN kr3 Yaritza Erazo, MITCHELL PAMel ef1 Pao Campoverde RN RN ld5 Kristine GuoRN CATHERINE [facility] Christophe, Guera Barajas Kathie klr The chart was reviewed and I authenticate all verbal orders and agree with the evaluation and treatment provided.Corrections: (The following items were deleted from the chart) 15:14 15:08 HCG, SERUM QUANTITATIVE+LAB ordered. EDMS EDMS 16:30 15:07 1ST TRIMESTER US+US ordered. EDMS EDMS Attachments: 15:15 [facility] [place] Agreement [facility] 10/24 18:08 T-Sheet-- Draft Copy klr Chart Complete MTDD
--- NOTE | 2016-10-25 18:46 | EDDOCDS ---
Nurse's Notes [facility] Name: Ashtyn Curtis Age: 21 yrs Sex: Female : 1995 Arrival Date: 10/23/2016 Time: 12:25 Bed PD Private MD: NO PRIMARY PHYSICIAN, . Diagnosis: Urinary tract infection, site not specified;Calculus of kidney and ureter-Moderate Right-Sided Hydronephrosis, normal metabolic panel; related conditions, unspecified, second trimester-SIUP 20 weeks 2 days Presentation: 10/23 13:05 Presenting complaint: Patient states: right flank pain started early this morning, I've cjh had kidney stones before, it's calmed down a lot but still having pain and I am don't know how far. Acute neurological deficits are not present. Mechanism of Injury: No Mechanism of Injury. Adult Sepsis Screening: The patient does not have new or worsening altered mentation. Patient's respiratory rate is less than 22. Systolic blood pressure is greater than 100. Patient has a qSOFA score of 0- Negative Sepsis Screen. Suicide/Homicide risk assessment- the patient denies having any suicidal and/or homicidal ideations and does not present with any other emotional, behavioral or mental health complaints. Status: Patient is not a conference services director or dependent. Transition of care: patient was not received from another setting of care. 13:05 Acuity: GRACE Level 3 [facility] 13:05 Method Of Arrival: Walkin/Carried/Asstd [facility] Triage Assessment: 13:08 General: Appears in no apparent distress, comfortable, Behavior is appropriate for age, [facility] cooperative. Pain: Location: posterior aspect of right lateral abdomen Pain currently is 7 out of 10 on a pain scale. HIV screening NA for this visit Offered previously. : Reports none. Musculoskeletal: Range of motion intact in all extremities. 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 ferrous sulfate 325 mg (65 mg iron) Oral TbEC daily (Last dose: Unknown) - PMHx: Anemia; - PSHx: ; - Social history: Smoking status: Patient uses tobacco products, heavy tobacco smoker. No barriers to communication noted. - Family history: Not pertinent. - : The pt / caregiver states he / she is not on anticoagulants. Home medication list is obtained from the patient. - Exposure Risk Screening:: None identified. Screenin:13 Screening information is obtained from the patient. Fall risk: No risks identified. kr3 Assistance ADL's: requires no assistance with activities of daily living. Abuse/DV Screen: The patient / caregiver reports he/she is: not in a situation that causes fear, pain or injury. Nutritional screening: No deficits noted. Advance Directives: Currently, there is no health care proxy. home support is adequate. Assessment: 15:13 Reassessment: Patient appears in no apparent distress at this time. Pain: Location: kr3 right flank Pain currently is 6 out of 10 on a pain scale. Respiratory: Respiratory effort is even, unlabored. Derm: Skin is normal. 17:06 Reassessment: Patient appears in no apparent distress at this time. Reassessment: kr3 informed that provider would be in to discuss results after speaking with Dr Yeboah. Pain: Location: right flank Pain currently is 3 out of 10 on a pain scale. 17:45 General: Appears in no apparent distress. Pain: Denies pain. Neurological: Level of ld5 Consciousness is awake, alert. Respiratory: Airway is patent Respiratory effort is even, unlabored. Vital Signs: 12:27 BP 91 / 59; Pulse 120; Resp 18 S; Temp 97.9(O); Pulse Ox 98% on R/A; Weight 49.9 kg gr2 (M); Height 5 ft. 2 in. (157.48 cm) (R); Pain 6/10; 17:09 BP 105 / 63; Pulse 96; Resp 16; Temp 97.6(O); Pulse Ox 100% on R/A; kr3 17:38 BP 99 / 57; Pulse 99; Resp 16; Temp 98.4(TE); Pulse Ox 98% on R/A; Pain 0/10; sew 12:27 Body Mass Index 20.12 (49.90 kg, 157.48 cm) gr2 Vitals: 12:27 Log In Time: October 23, 2016 at 12:27. gr2 ED Course: 12:26 Patient visited by Rito Hamilton. gr2 12:26 Patient moved to Waiting gr2 12:27 NO PRIMARY PHYSICIAN, . is Private Physician. gr2 12:29 Patient visited by Rito Hamilton. gr2 12:29 Patient moved to Pre RCE gr2 13:07 Triage Initiated cjh 14:21 Patient moved to PR2 / 26 sew 14:37 BLOOD CULTURES Sent. sew 14:37 BMP Sent. sew 14:37 CBC with Diff Sent. sew 14:37 Lipase Sent. sew 14:37 Liver Profile Sent. sew 14:37 Urinalysis Sent. sew 14:37 Labs drawn. (by ED staff). Sent per order to lab. Labs/Blood culture drawn Urine sew collected. Clean catch specimen. Urine specimen sent to lab. 14:39 Patient visited by Effie Saeed. sew 14:43 Patient visited by Effie Saeed. sew 14:43 BLOOD CULTURES Sent. sew 14:43 Labs/Blood culture drawn. sew 14:44 Patient moved to Triage 1 kr3 15:01 Yaritza Erazo PA-C is PHCP. ef1 15:01 Jose G Sanches MD is Attending Physician. ef1 15:02 Patient visited by Yaritza Erazo PA-C. ef1 15:12 Patient moved to TR1 kr3 15:14 The patient / caregiver is instructed regarding the plan of care and ED course. Patient kr3 has correct armband on for positive identification. 15:14 Urine Culture Sent. kr3 15:15 [facility] Payment Agreement was scanned into [employer] and attached to record. gjb 15:18 Patient name changed from Ashtyn\S\Tamar\S\Curtis\S\ to Ashtyn\S\P\S\Curtis. EDMS 15:29 Patient visited by Yaritza Erazo PA-C. ef1 16:11 Patient visited by Yaritza Erazo PA-C. ef1 16:52 Patient visited by Yaritza Erazo PA-C. ef1 17:04 Patient moved to I6 kr3 17:05 Patient moved to PD2 kr3 17:09 No IV's were initiated during this patient's visit. No procedures done that require kr3 assistance. 17:31 Patient visited by Yaritza Erazo PA-C. ef1 17:37 Nam Mcdaniel is Referral Physician. ef1 17:38 US OBS SINGEDINSON GEST Returned. kr3 17:39 Patient visited by Effie Saeed. sew 17:46 Patient visited by Pao Campoverde RN. ld5 10/24 09:13 Renal US Returned. EDMS 18:08 T-Sheet-- Draft Copy was scanned into [employer] and attached to record. klr Administered Medications: 10/23 15:13 Drug: Metoclopramide 10 mg [metoclopramide 10 mg tablet (1 tabs)] Route: PO; kr3 15:13 Drug: Acetaminophen 650 mg [acetaminophen 325 mg tablet (2 tabs)] Route: PO; kr3 17:37 Drug: Nitrofurantoin 100 mg Route: PO; kr3 Point of Care Testing: Urine : 14:38 hCG Reading: Positive; Control Reading: Positive; sew Ranges: Order Results: Lab Order: BMP; SPEC'M 10/23/16 14:33 Test: GLUCOSE, FASTING; Value: 96; Range: 70-105; Units: MG/DL; Status: F Test: BLOOD UREA NITROGEN; Value: 7; Range: 7-18; Units: MG/DL; Status: F Test: CREATININE FOR GFR; Value: 0.71; Range: 0.55-1.02; Units: MG/DL; Status: F Test: GLOMERULAR FILTRATION RATE; Value: > 60.0; Range: >60; Status: F Test: SODIUM LEVEL; Value: 137; Range: 136-145; Units: MEQ/L; Status: F Test: POTASSIUM SERUM; Value: 4.2; Range: 3.5-5.1; Units: MEQ/L; Status: F Test: CHLORIDE LEVEL; Value: 103; Range: 98-107; Units: MEQ/L; Status: F Test: CARBON DIOXIDE LEVEL; Value: 26; Range: 21-32; Units: MEQ/L; Status: F Test: ANION GAP; Value: 8; Range: 8-16; Units: MEQ/L; Status: F Test: CALCIUM LEVEL; Value: 8.5; Range: 8.5-10.1; Units: MG/DL; Status: F Test Note: ; Units are mL/min/1.73 m2 Chronic Kidney Disease Staging per NKF: Stage I & II GFR >=60 Normal to Mildly Decreased Stage III GFR 30-59 Moderately Decreased Stage IV GFR 15-29 Severely Decreased Stage V GFR <15 Very Little GFR Left ESRD GFR <15 on CADDY Lab Order: CBC with Diff; SPEC'M 10/23/16 14:33 Test: WHITE BLOOD COUNT; Value: 8.2; Range: 4.0-10.0; Units: K/mm3; Status: F Test: RED BLOOD COUNT; Value: 3.77; Range: 4.00-5.40; Abnormal: Below low normal; Units: M/mm3; Status: F Test: HEMOGLOBIN; Value: 10.6; Range: 12.0-16.0; Abnormal: Below low normal; Units: g/dl; Status: F Test: HEMATOCRIT; Value: 32.1; Range: 36.0-47.0; Abnormal: Below low normal; Units: %; Status: F Test: MEAN CORPUSCULAR VOLUME; Value: 85.2; Range: 80.0-96.0; Units: fl; Status: F Test: MEAN CORPUSCULAR HEMOGLOBIN; Value: 28.2; Range: 27.0-33.0; Units: pg; Status: F Test: MEAN CORPUSCULAR HGB CONC; Value: 33.1; Range: 32.0-36.5; Units: g/dl; Status: F Test: RED CELL DISTRIBUTION WIDTH; Value: 14.5; Range: 11.5-14.5; Units: %; Status: F Test: PLATELET COUNT, AUTOMATED; Value: 162; Range: 150-450; Units: k/mm3; Status: F Test: NEUTROPHILS %; Value: 81.5; Range: 36.0-66.0; Abnormal: Above high normal; Units: %; Status: F Test: LYMPH %; Value: 10.0; Range: 24.0-44.0; Abnormal: Below low normal; Units: %; Status: F Test: MONO %; Value: 6.8; Range: 0.0-5.0; Abnormal: Above high normal; Units: %; Status: F Test: EOS %; Value: 0.4; Range: 0.0-3.0; Units: %; Status: F Test: BASO %; Value: 0.1; Range: 0.0-1.0; Units: %; Status: F Test: LARGE UNSTAINED CELL %; Value: 1.2; Range: 0.0-4.0; Units: %; Status: F Test: NEUTROPHILS #; Value: 6.7; Range: 1.8-7.7; Units: K/mm3; Status: F Test: LYMPH #; Value: 0.8; Range: 1.5-6.5; Abnormal: Below low normal; Units: K/mm3; Status: F Test: MONO #; Value: 0.6; Range: 0.0-0.8; Units: K/mm3; Status: F Test: EOS #; Value: 0.0; Range: 0.0-0.50; Units: K/mm3; Status: F Test: BASO #; Value: 0.0; Range: 0.0-0.2; Units: K/mm3; Status: F Test: LARGE UNSTAINED CELL #; Value: 0.1; Range: 0.0-0.4; Units: K/mm3; Status: F Lab Order: Lipase; SPEC'M 10/23/16 14:33 Test: LIPASE; Value: 55; Range: 73-393; Abnormal: Below low normal; Units: U/L; Status: F Lab Order: Liver Profile; SPEC'M 10/23/16 14:33 Test: AST/SGOT; Value: 3; Range: 15-37; Abnormal: Below low normal; Units: U/L; Status: F Test: ALT/SGPT; Value: 10; Range: 12-78; Abnormal: Below low normal; Units: U/L; Status: F Test: ALKALINE PHOSPHATASE; Value: 102; Range: 45-117; Units: U/L; Status: F Test: BILIRUBIN,TOTAL; Value: 0.7; Range: 0.2-1.0; Units: MG/DL; Status: F Test: BILIRUBIN,DIRECT; Value: 0.1; Range: 0.0-0.2; Units: MG/DL; Status: F Test: TOTAL PROTEIN; Value: 6.9; Range: 6.4-8.2; Units: GM/DL; Status: F Test: ALBUMIN; Value: 2.9; Range: 3.2-5.2; Abnormal: Below low normal; Units: GM/DL; Status: F Test: ALBUMIN/GLOBULIN RATIO; Value: 0.73; Range: 1.00-1.93; Abnormal: Below low normal; Status: F Lab Order: Urinalysis; SPEC'M 10/23/16 14:33 Test: APPEARANCE, URINE; Value: TURBID; Range: CLEAR; Abnormal: Above high normal; Status: F Test: COLOR, URINE; Value: LUCI; Range: YELLOW; Status: F Test: PH,URINE; Value: 6.0; Range: 5.0-9.0; Units: UNITS; Status: F Test: SPECIFIC GRAVITY URINE AUTO; Value: 1.009; Range: 1.002-1.035; Status: F Test: PROTEIN, URINE AUTO; Value: 2+; Range: NEGATIVE; Abnormal: Above high normal; Units: mg/dL; Status: F Test: GLUCOSE, URINE (UA) AUTO; Value: NEGATIVE; Range: NEGATIVE; Units: mg/dL; Status: F Test: KETONE, URINE AUTO; Value: NEGATIVE; Range: NEGATIVE; Units: mg/dL; Status: F Test: UROBILINOGEN, URINE AUTO; Value: 0.2; Range: 0.0-2.0; Units: mg/dL; Status: F Test: BILIRUBIN, URINE AUTO; Value: NEGATIVE; Range: NEGATIVE; Status: F Test: NITRITE, URINE AUTO; Value: NEGATIVE; Range: NEGATIVE; Status: F Test: LEUKOCYTE ESTERASE, URINE AUTO; Value: 3+; Range: NEGATIVE; Abnormal: Above high normal; Status: F Test: BLOOD, URINE BLOOD; Value: 1+; Range: NEGATIVE; Abnormal: Above high normal; Status: F Test: WBC, URINE AUTO; Value: TNTC; Range: 0-3; Abnormal: Above high normal; Units: /HPF; Status: F Test: RBC, URINE AUTO; Value: 24; Range: 0-3; Abnormal: Above high normal; Units: /HPF; Status: F Test: BACTERIA, URINE AUTO; Value: 3+; Range: NEGATIVE; Abnormal: Above high normal; Status: F Test: SQUAMOUS EPITHELIAL CELL UR AU; Value: 9; Range: 0-6; Units: /HPF; Status: F Test: MUCUS, URINE; Value: SMALL; Range: NEGATIVE; Status: F Test: HYALINE CAST, URINE AUTO; Value: 0; Range: 0-1; Units: /LPF; Status: F Lab Order: BLOOD CULTURES; SPEC'M 10/23/16 14:33 Test: BLOOD CULTURE; Value: No growth after 24 hours . All specimens observed; Status: F Test: BLOOD CULTURE; Value: for 5 days. Results final at that time.; Status: F Test: BLOOD CULTURE; Value: No Growth after 48 hours. All Specimens observed; Status: F Test: BLOOD CULTURE; Value: for 7 days. Results final at that time.; Status: F Lab Order: BLOOD CULTURES; SPEC'M 10/23/16 14:43 Test: BLOOD CULTURE; Value: No growth after 24 hours . All specimens observed; Status: F Test: BLOOD CULTURE; Value: for 5 days. Results final at that time.; Status: F Test: BLOOD CULTURE; Value: No Growth after 48 hours. All Specimens observed; Status: F Test: BLOOD CULTURE; Value: for 7 days. Results final at that time.; Status: F Lab Order: Urine Culture; SPEC'M 10/23/16 14:33 Test: URINE CULTURE; Value: ORGANISM 1: KLEBSIELLA PNEUMONIAE; Status: F Test: URINE CULTURE; Value: KLEBSIELLA PNEUMONIAE; Status: F Test: URINE CULTURE; Value: COLONY COUNT CFU/ml >100,000; Status: F Test: URINE CULTURE; Value: GRAM NEG SENSI - VITEK 80; Status: F Test: URINE CULTURE; Value: Method: VIT2; Status: F Test: URINE CULTURE; Value: EXTD BRD SPCTRM BETA LACTAMASE -; Status: F Test: URINE CULTURE; Value: TRIMETHOPRIM/SULFAMETHOXAZOLE <=20 S; Status: F Test: URINE CULTURE; Value: AMPICILLIN >=32 R; Status: F Test: URINE CULTURE; Value: GENTAMICIN <=1 S; Status: F Test: URINE CULTURE; Value: NITROFURANTOIN <=16 S; Status: F Test: URINE CULTURE; Value: CEFAZOLIN <=4 S; Status: F Test: URINE CULTURE; Value: LEVOFLOXACIN <=0.12 S; Status: F Test: URINE CULTURE; Value: TOBRAMYCIN <=1 S; Status: F Test: URINE CULTURE; Value: CEFTRIAXONE <=1 S; Status: F Test: URINE CULTURE; Value: CEFTAZIDIME <=1 S; Status: F Test: URINE CULTURE; Value: AMPICILLIN/SULBACTAM 4 S; Status: F Test: URINE CULTURE; Value: PIPERACILLIN/TAZOBACTAM <=4 S; Status: F Test: URINE CULTURE; Value: AZTREONAM <=1 S; Status: F Test: URINE CULTURE; Value: ERTAPENEM <=0.5 S; Status: F Test: URINE CULTURE; Value: MEROPENEM <=0.25 S; Status: F Test: URINE CULTURE; Value: TIGECYCLINE 1 S; Status: F Test: URINE CULTURE; Value: CEFEPIME <=1 S; Status: F Lab Order: HCG, SERUM QUANTITATIVE; SPEC'M 10/23/16 14:33 Test: HCG, SERUM QUANTITATIVE; Value: 50672; Units: MIU/ML; Status: F Test Note: ; GESTATIONAL AGE APPROXIMATE HCG RANGE (MIU/ML) 0.2-1 WEEK 5-50 1-2 WEEKS 50-500 2-3 WEEKS 100-5,000 3-4 WEEKS 500-10,000 4-5 WEEKS 1,000-50,000 5-6 WEEKS 10,000-100,000 6-8 WEEKS 15,000-200,000 2-3 MONTHS 10,000-100,000 NON FEMALES LESS THAN 3.0 Patient samples may contain human heterophilic antibodies that could react with immunoassays to give falsely elevated or depressed results. This assay has been designed to minimize interference from heterophilic antibodies. Elevated hCG levels have also been associated with trophoblastic disease and nontrophoblastic neoplasms. The possibility of having these diseases should be considered before a diagnosis of is made. This test is not intended for use as a surrogate marker for aiding in the diagnosis or monitoring the treatment of cancer patients. [employer] methodology. Radiology Order: Renal US Test: Renal US REASON FOR EXAMINATION: Renal colic; Urinary tract sonography:; ; History: Renal colic. .; ; Findings: Scanning at the level of the urinary bladder shows emptying ureteral; jets from the left ureter only on color Doppler interrogation of the bladder; lumen. No right ureteral jet is seen. There is moderate hydronephrosis; affecting the right kidney. Renal cortical echogenicity pattern is normal. No; hydronephrosis is seen on the left. The right kidney measures 10.2 x 4.5 x 5.1; cm. Left renal dimensions are 10.0 x 4.1 x 5.1 cm. No renal mass or cyst is; seen. No stone is visible. Resistive indices are 0.57 on the left and 0.63 on; the right.; ; Impression:; ; Moderate right-sided hydronephrosis. Somewhat elevated resistive index. Absence; of ureteral emptying jet from the right ureter on color Doppler interrogation of; the bladder lumen. Findings consistent with obstructive uropathy on the right; side.; ; ; Signed by; Max Gonzalez MD 10/24/2016 09:04 A; Radiology Order: US OBS SINGEL GEST Test: US OBS SINGEL GEST REASON FOR EXAMINATION: abd pain, ; Obstetric ultrasound:; ; There are no prior studies.; ; There is a single intrauterine gestation in a vertex presentation. There is; movement. The heart rate is 157 beats per minute. The placenta is; posterior and lateral right lateral with no previa or abruptio. Placenta is; grade 0 maturity.; ; The amniotic fluid volume subjectively is normal.; ; The cervix is 3.3 cm length.; ; The maternal adnexa and cul-de-sac are unremarkable.; ; Based on today's measurements gestational age is 20 weeks 2 days with an KALE of; 03/10/2017.; ; weight is 368 grams (0 pounds, 12 ounces). This is the 58th percentile for; 20 weeks 2 days; ; The following anatomic structures are identified and are unremarkable:; ; Cranium, choroid plexus, cavum septum pellucidum, posterior fossa/cerebellum,; face/facial profile, lungs, four-chamber heart, diaphragm, stomach, cord; insertion, three-vessel cord, bladder, spine and upper lower extremities.; ; Suboptimally demonstrated are the cardiac right and left ventricular outflow; tracts and kidneys. A followup study dedicated to these structures might be; considered.; ; Otherwise, no anomalies are identified. .; ; ; Signed by; Thomas Barker MD 10/23/2016 05:27 P; Outcome: 17:06 Ultrasound Study completed. kr3 17:37 Discharge ordered by Provider. ef1 17:45 Discharge Assessment: Patient awake, alert and oriented x 3. No cognitive and/or ld5 functional deficits noted. Patient verbalized understanding of disposition instructions. patient administered narcotics - no. The following High Risk Discharge criteria are identified: None. Discharged to home ambulatory. Condition: stable. Discharge instructions given to patient, Instructed on discharge instructions, follow up and referral plans. medication usage, Demonstrated understanding of instructions, medications, Pt was receptive of discharge instructions/ teaching. Prescriptions given X 2. Property :Personal belongings accompany Pt. 17:46 Patient left the ED. ld5 Signatures: Dispatcher [employer] EDCelina Herman,RN RN kr3 Yaritza Erazo, PA-C PA-C ef1 Pao CampoverdeRN RN ld5 Kristine GuoRN RN Effie Sunshine Gainslee gr2 Guera Ayala Kathie klr Corrections: (The following items were deleted from the chart) 15:14 15:08 HCG, SERUM QUANTITATIVE+LAB sent. tana MARCUMNV Chart Complete MTDD
== END 2016-10-23 17:46 | disposition home or self-care (01) ==
LOC: M ED 12:25
DX: O26.832 Pregnancy related renal disease, second trimester (principal); N20.2 Calculus of kidney with calculus of ureter; O23.42 Unspecified infection of urinary tract in pregnancy, second trimester; O99.012 Anemia complicating pregnancy, second trimester; O99.332 Smoking (tobacco) complicating pregnancy, second trimester; F17.210 Nicotine dependence, cigarettes, uncomplicated; Z87.442 Personal history of urinary calculi; Z3A.20 20 weeks gestation of pregnancy

== ENCOUNTER → 2016-11-02 | Outpatient (CLI) | payer OTHER ==
[2016-11-02 18:10] LABS: BASO % 0.2 % (0.0-1.0); EOS # 0.1 K/mm3 (0.0-0.50); LARGE UNSTAINED CELL # 0.1 K/mm3 (0.0-0.4); LARGE UNSTAINED CELL % 1.1 % (0.0-4.0); LYMPH # 1.2 K/mm3 (1.5-6.5); LYMPH % 18.5 % (24.0-44.0); MEAN CORPUSCULAR HEMOGLOBIN 28.3 pg (27.0-33.0); MEAN CORPUSCULAR VOLUME 85.8 fl (80.0-96.0); MONO # 0.3 K/mm3 (0.0-0.8); MONO % 4.2 % (0.0-5.0); NEUTROPHILS # 4.9 K/mm3 (1.8-7.7); PLATELET COUNT, AUTOMATED 257 k/mm3 (150-450); WHITE BLOOD COUNT 6.5 K/mm3 (4.0-10.0)
[2016-11-03 09:48] LABS: CONTROL LINE INT CTR LINE PRESENT; HIV SCRN NEGATIVE (NEGATIVE); HIV SCRN1 NEGATIVE (NEGATIVE)
[2016-11-03 09:50] LABS: HBsAg Prenatal NEGATIVE (NEGATIVE)
== END ==
LOC: M LAB 15:18
PROVIDERS: ATTEND Obstetrics & Gynecology
DX: Z34.81 Encounter for supervision of other normal pregnancy, first trimester (principal)

== ENCOUNTER → 2016-11-03 | Outpatient (CLI) | payer OTHER ==
--- NOTE | 2016-11-04 04:15 | REP ---
Clinical: Anatomical evaluation. Comparison: 10/23/2016 . Findings: Examination demonstrates a single live intrauterine in variable presentation. motion is identified by technologist. Placenta is noted posteriorly and grade zero without evidence for placenta previa or abruption. Amniotic fluid volume is normal. Cervix measures 3.7 cm in length and appears closed. No evidence for nuchal cord. Gestational age by LMP 21 weeks 6 days with KALE 03/10/2017 . Gestational age by current measurements 21 weeks 3 days with KALE 03/13/2017 . FHR equals 163 beats per minute. Estimated weight 420 grams ( 33rd percentile). Anatomical assessment demonstrates normal structures including cranium, choroid plexus, cavum, cerebellum/posterior fossa, facial features, lungs, four-chamber heart/ventricular outflow tracts, diaphragm, stomach, cord insertion/three-vessel cord, kidneys/bladder, spine, and extremities. Impression: Single live intrauterine in variable presentation demonstrating appropriate interval growth. Anatomical assessment is complete and normal. Signed by John Gomez MD 11/04/2016 04:07 A
== END ==
LOC: M RAD 15:00
PROVIDERS: ATTEND Obstetrics & Gynecology
DX: Z36 Encounter for antenatal screening of mother (principal); Z3A.21 21 weeks gestation of pregnancy

== ENCOUNTER → 2016-12-08 | Outpatient (CLI) | payer OTHER ==
[~2016-12-08] MED LIST changes: +MACR100C3 PO
[2016-12-08 14:54] LABS: MEAN CORPUSCULAR HEMOGLOBIN 27.6 pg (27.0-33.0); MEAN CORPUSCULAR VOLUME 83.7 fl (80.0-96.0); RED CELL DISTRIBUTION WIDTH 12.5 % (11.5-14.5); WHITE BLOOD COUNT 6.7 K/mm3 (4.0-10.0)
== END ==
LOC: M LAB 13:17
PROVIDERS: ATTEND Advanced Practice Midwife
DX: Z34.82 Encounter for supervision of other normal pregnancy, second trimester (principal)

== ENCOUNTER 2016-12-11 20:16 | Emergency (ER) | payer OTHER ==
[~2016-12-11] VITALS: Ht 157.5 cm; Wt 55.8 kg
[2016-12-11 20:16] VITALS: BP 113/74
[~2016-12-11 20:16] MED LIST changes: -MACR100C3 PO
[2016-12-11] MEDS ORDERED: MACR100C3 PO (20:41)
== END 2016-12-11 23:32 | disposition home or self-care (01) ==
LOC: M ED 20:56
DX: O99.512 Diseases of the respiratory system complicating pregnancy, second trimester (principal); J06.9 Acute upper respiratory infection, unspecified; Z3A.26 26 weeks gestation of pregnancy; Z88.6 Allergy status to analgesic agent; O99.332 Smoking (tobacco) complicating pregnancy, second trimester; F17.210 Nicotine dependence, cigarettes, uncomplicated

== ENCOUNTER → 2016-12-22 | Outpatient (REF) | payer OTHER ==
[~2016-12-22] MED LIST changes: +MACR100C3 PO
== END ==
LOC: M LAB REF 17:06
PROVIDERS: ATTEND Advanced Practice Midwife
DX: Z34.82 Encounter for supervision of other normal pregnancy, second trimester (principal)

== ENCOUNTER → 2017-02-09 | Outpatient (REF) | payer OTHER | LOC: M LAB REF 17:06 | PROVIDERS: ATTEND Specialist | DX: Z34.83 Encounter for supervision of other normal pregnancy, third trimester (principal) ==

== ENCOUNTER → 2017-02-16 | Outpatient (REF) | payer OTHER | LOC: M LAB REF 12:59 | PROVIDERS: ATTEND Specialist | DX: Z34.83 Encounter for supervision of other normal pregnancy, third trimester (principal) ==

== ENCOUNTER 2017-02-27 02:24 | Inpatient (IN) | payer OTHER ==
[~2017-02-27] VITALS: Ht 157.5 cm; Wt 57.0 kg
[~2017-02-27 02:24] MED LIST changes: -CEFAZOLIN PO; -PRENTAB9 PO
[2017-02-27 02:45] VITALS: BP 121/66
[2017-02-27] MEDS ORDERED: LR 1,000 ML IV SCH (03:12)
[2017-02-27] MEDS ORDERED: cefTRIAXone SOD 1 GM in D5W MINI-BAG PLUS 50 ML IV SCH (03:15)
[2017-02-27 03:50] LABS: BASO % 0.4 % (0.0-1.0); EOS # 0.1 K/mm3 (0.0-0.50); EOS % 0.7 % (0.0-3.0); LARGE UNSTAINED CELL # 0.1 K/mm3 (0.0-0.4); LARGE UNSTAINED CELL % 1.2 % (0.0-4.0); LYMPH # 1.7 K/mm3 (1.5-6.5); MEAN CORPUSCULAR HEMOGLOBIN 23.5 pg (27.0-33.0); MEAN CORPUSCULAR HGB CONC 31.7 g/dl (32.0-36.5); MEAN CORPUSCULAR VOLUME 74.1 fl (80.0-96.0); MONO # 0.5 K/mm3 (0.0-0.8); MONO % 5.8 % (0.0-5.0); NEUTROPHILS # 6.2 K/mm3 (1.8-7.7); PLATELET COUNT, AUTOMATED 208 k/mm3 (150-450); WHITE BLOOD COUNT 8.5 K/mm3 (4.0-10.0)
[2017-02-27 04:10] LABS: ANION GAP 10 MEQ/L (8-16); BLOOD UREA NITROGEN 10 MG/DL (7-18); CALCIUM LEVEL 8.5 MG/DL (8.5-10.1); CARBON DIOXIDE LEVEL 23 MEQ/L (21-32); CHLORIDE LEVEL 105 MEQ/L (98-107); CREATININE FOR GFR 0.79 MG/DL (0.55-1.02); GLOMERULAR FILTRATION RATE > 60.0 (>60); GLUCOSE, FASTING 82 MG/DL (70-105); POTASSIUM SERUM 3.9 MEQ/L (3.5-5.1); SODIUM LEVEL 138 MEQ/L (136-145)
[2017-02-27 04:17] VITALS: BP 115/68
--- NOTE | 2017-02-27 11:36 | HPE ---
DATE OF ADMISSION: 02/27/2017 A 21-year-old female, G3, P2 female, 38-3/7 weeks' gestation by 20-week ultrasound, estimated date of confinement (EDC) 03/10/2017, presents with right flank pain for the last day. She denies fevers. She has abdominal pressure. She presents to the hospital due to the significance of the pain. COURSE: The patient initiated care at 20 weeks' gestation on 10/27/2016. Her blood pressure was 136/72. Weight: 111 pounds. Her course was significant for recurrent bacteruria with Klebsiella in spite of multiple courses of antibiotics. Her intentions for repeat section with tubal ligation. MEDICAL HISTORY: Attention deficit hyperactivity disorder (ADHD). SURGICAL HISTORY: (C) section times two. ALLERGIES: IBUPROFEN which causes hives. SOCIAL HISTORY: The patient is , and the father of the baby is involved. She smokes 1/2 pack of cigarettes per day. Denies alcohol or drug use during . FAMILY HISTORY: Noncontributory. PHYSICAL EXAMINATION: Blood pressure 120/70, pulse 80. She appears mildly uncomfortable. HEAD AND NECK EXAMINATION: Normal. LUNGS: Clear. HEART: Regular rate and rhythm. She has got mild tenderness in the right costovertebral angle (CVA) area. The cervix is 1 cm, 70% effaced, -2 station, firm, vertex. Contractions every 3-5 minutes. ASSESSMENT: A 21-year-old G3, P2 female at 38-3/7 weeks' gestation with flank pain and contractions. The pain is concerning for possible pyelonephritis. The patient has had recurrent bacteruria throughout . The plan is to admit the patient for intravenous (IV) antibiotics, as well as evaluation for labor. Urine will be sent for culture.
--- NOTE | 2017-02-27 12:00 | DSES ---
DATE OF ADMISSION: 02/27/2017 DATE OF DISCHARGE: 02/27/2017 HISTORY: 21-year-old, 2, para 2, female 38 and 3/7 weeks gestation by 20 week ultrasound, EDC of 03/10/2017, presents with right flank pain for 1 day. Denies fevers or chills. She also has pelvic pressure. Her course was significant for recurrent bacteremia with Klebsiella in spite of appropriate antibiotic treatment. HOSPITAL COURSE: On 02/27/2017 the patient presented at approximately 3 a.m. to labor and delivery floor, main complaint was flank pain on the right side in the area of her kidney. Exams showed mildly tenderness in the right costovertebral angle (CVA) area. Her urine was highly suspicious for a urinary tract infection. She had no fevers and her white blood count was normal. There is suspicion for possible pyelonephritis so the patient was admitted. She was also noted to be dara every 3-5 minutes. Cervix was checked and was dilated at 1 cm, 70% effaced, -2 station. Patient was treated with ceftriaxone intravenous for possible pyelonephritis. It was noted that prior urine cultures were sensitive to ceftriaxone. She was given IV fluids and monitored for contraction. Her contractions stopped over the course of several hours of hydration and rest. Her flank pain completely went away. She had no fevers during hospitalization. The patient slept through the rest of the night without any problems and required no pain medicine. Decision was made to discharge the patient home later that same day. ADMISSION DIAGNOSES: 38 and 3/7 weeks gestation. Urinary tract infection. Possible pyelonephritis, however, this was not definitive. DISCHARGE DIAGNOSES: 38 and 3/7 weeks gestation. Urinary tract infection. Possible pyelonephritis, however, this was not definitive. DISPOSITION: Patient is discharged home with instructions. She will continue on Keflex 500 mg three times a day until the date of her surgery which is 03/03/2017. Patient will call with any worsening symptoms.
== END 2017-02-27 11:06 | disposition home or self-care (01) | DRG 566 ==
LOC: M LDO 02:24 → M LDI 03:09
PROVIDERS: ADMIT Specialist; ATTEND Specialist
DX: O23.03 Infections of kidney in pregnancy, third trimester (principal); Z3A.38 38 weeks gestation of pregnancy; O99.333 Smoking (tobacco) complicating pregnancy, third trimester; F17.210 Nicotine dependence, cigarettes, uncomplicated; B96.1 Klebsiella pneumoniae [K. pneumoniae] as the cause of diseases classified elsewhere

== ENCOUNTER → 2017-02-27 | Emergency (ER) | payer OTHER ==
[~2017-02-27] MED LIST changes: +CEFAZOLIN PO; +PRENTAB9 PO
== END | disposition left against medical advice (07) ==
LOC: M ED 04:17
DX: R10.9 Unspecified abdominal pain (principal)

== ENCOUNTER 2017-03-03 05:55 | Inpatient (IN) | payer OTHER ==
[2017-03-03] VITALS (9 sets, daily range): BP systolic 106–120; BP diastolic 58–76
[~2017-03-03] VITALS: Ht 157.5 cm; Wt 56.0 kg
[2017-03-03 06:47] LABS: MEAN CORPUSCULAR HEMOGLOBIN 23.7 pg (27.0-33.0); MEAN CORPUSCULAR VOLUME 74.3 fl (80.0-96.0); RED CELL DISTRIBUTION WIDTH 14.9 % (11.5-14.5); WHITE BLOOD COUNT 7.2 K/mm3 (4.0-10.0)
[2017-03-03] MEDS ORDERED: BICITRA 30ML SOLN UDC As Ordered ONE (06:51)
[2017-03-03] MEDS ORDERED: CEFAZOLIN PO (06:59)
[2017-03-03] MEDS ORDERED: MORPHINE PRES-FREE INJ 10 MG/10 ML VIAL (J2274) As Ordered ONE (06:59)
[2017-03-03] MEDS ORDERED: OXYTOCIN INJ 10 UNITS/ML VIAL (J2590) As Ordered ONE (06:59)
[2017-03-03] MEDS ORDERED: ceFAZolin SOD 1 GM in D5W MINI-BAG PLUS 50 ML IV ONE (07:00)
[2017-03-03] MEDS ORDERED: LR 800 ML IV ONE (07:00)
[2017-03-03] MEDS ORDERED: LR 1,000 ML IV SCH (07:00)
[2017-03-03] MEDS ORDERED: KEFL500C7 PO (07:16)
[2017-03-03] MEDS ORDERED: NALOXONE INJ 0.4 MG/1 ML VIAL (J2310) IV PRN ×2 (07:50)
[2017-03-03] MEDS ORDERED: NALBUPHINE HCL 10 MG/ML AMP (J2300) IV PRN ×2 (07:50→09:45)
[2017-03-03] MEDS ORDERED: METOCLOPRAMIDE INJ 10MG/2ML VIAL (J2765) IV PRN ×2 (07:50→09:45)
[2017-03-03] MEDS ORDERED: ONDANSETRON 4MG/2ML VIAL (J2405) IV PRN ×3 (07:50→09:45)
[2017-03-03] MEDS ORDERED: PHENYLephrine HCL 500 MCG/5 ML (100MCG/ML) SYRINGE (J2370) As Ordered ONE (07:53)
[2017-03-03] MEDS ORDERED: PERCOCET 5MG/325MG TAB PO PRN (09:00)
[2017-03-03] MEDS: PRENATAL VITAMIN TAB PO SCH (09:00)
[2017-03-03] MEDS ORDERED: MEASLES,MUMPS,RUBELLA VACCINE INJ (MMR-II) (90707) SC SCH (09:00)
[2017-03-03] MEDS ORDERED: DOCUSATE SODIUM 100 MG CAP PO PRN (09:00)
[2017-03-03] MEDS ORDERED: RHOGAM 300 MCG (1500 IU) INJ (J2790) IM SCH (09:00)
[2017-03-03] MEDS ORDERED: OXYTOCIN DRIP 30 UNITS in APPROPRIATE DILUENT 1 EA IV ONE (09:00)
--- NOTE | 2017-03-03 09:14 | RO ---
DATE OF PROCEDURE: 03/03/2017 PREPROCEDURE DIAGNOSIS: 39 weeks, prior section times two, undesired fertility. POSTPROCEDURE DIAGNOSIS: 39 weeks, prior section times two, undesired fertility. PROCEDURE: Repeat low transverse section. Bilateral tubal ligation. SURGEON: Dr. Chaitanya Chandra [employer] ATTENDANT: Dr. Vanessa Cormier ANESTHESIA: Spinal. ESTIMATED BLOOD LOSS: 500 mL. URINE OUTPUT: 400 mL. FINDINGS: 6 pound 4 ounce or 2844 gram female infant, Apgars 8 and 9, vertex position. Complete uterine dehiscence with a peritoneal window in the lower uterine segment approximately 6 x 5 cm. OPERATIVE SUMMARY: The patient was taken to the operating room where spinal anesthesia was induced. She was prepped and draped in a sterile fashion in the supine position. A Pederson catheter was placed. A Pfannenstiel skin incision was made with the scalpel and carried through to the fascia. The fascia was nicked and extended. The fascia was dissected off the rectus muscles. The rectus muscles were divided and the peritoneal cavity was entered. A bladder flap was created. There was a complete uterine dehiscence noted at the area of the prior hysterotomy. Incision was created until moderate meconium stained fluid was noted. This was extended manually. The was delivered in the vertex position without difficulty. The shoulders delivered with ease. The cried spontaneously. The cord was doubly clamped and cut. The infant was handed off to the awaiting nurses. The placenta was expressed. The uterus was exteriorized and cleared of clots and debris. The uterine incision was closed with #0 Vicryl in a running locked fashion. A second imbricating layer of #0 Vicryl was placed. Attention was turned to the fallopian tubes. A Alpha clamp was used to grasp the fallopian tube at its mid portion. A window was created in the broad ligament. A free tie of #3-0 chromic suture was placed around either end of the fallopian tube. A segment of tube was excised bilaterally and sent to pathology. The uterus was placed back in the abdominal cavity. The peritoneum was closed with #2-0 Vicryl in a running fashion. The subcutaneous layer was irrigated and the skin was closed with #4-0 Monocryl subcuticular sutures. Sponge, instrument and needle counts were correct. The patient went to the recovery room in stable condition.
[2017-03-03] MEDS ORDERED: fentaNYL 100 MCG/2 ML INJECTION (J3010) IV PRN (09:45)
[2017-03-03] MEDS ORDERED: MEPERIDINE INJ 25 MG/ML VIAL (J2175) IV PRN (09:45)
[2017-03-03] MEDS: PERCOCET 5MG/325MG TAB PO PRN ×2 (15:44→20:10)
[2017-03-03] MEDS: LR 1,000 ML IV SCH (19:00)
[2017-03-04] MEDS: LR 1,000 ML IV SCH (00:54)
[2017-03-04] MEDS ORDERED: PERC5TAB6 PO (02:20)
[2017-03-04] MEDS: PERCOCET 5MG/325MG TAB PO PRN ×5 (02:27→19:56)
[2017-03-04 02:29] VITALS: BP 125/83
[2017-03-04 06:12] VITALS: BP 131/78
[2017-03-04 06:28] LABS: MEAN CORPUSCULAR HEMOGLOBIN 23.5 pg (27.0-33.0); MEAN CORPUSCULAR HGB CONC 31.9 g/dl (32.0-36.5); MEAN CORPUSCULAR VOLUME 73.8 fl (80.0-96.0); WHITE BLOOD COUNT 5.6 K/mm3 (4.0-10.0)
[2017-03-04] MEDS: PRENATAL VITAMIN TAB PO SCH (09:00)
[2017-03-04 10:00] VITALS: BP 91/55
[2017-03-04] MEDS ORDERED: LR 1,000 ML IV ONE (12:00)
[2017-03-04 14:00] VITALS: BP 123/78
[2017-03-04 18:00] VITALS: BP 141/91
[2017-03-04 21:43] VITALS: BP 129/71
[2017-03-05] MEDS: PERCOCET 5MG/325MG TAB PO PRN ×2 (00:54→05:13)
[2017-03-05 05:30] VITALS: BP 112/69
[2017-03-05] MEDS: PRENATAL VITAMIN TAB PO SCH (09:30)
[2017-03-05] MEDS ORDERED: PRENTAB9 PO (10:23)
== END 2017-03-05 11:10 | disposition home or self-care (01) | DRG 540 ==
LOC: M LDI 05:55 → M OBS 10:37
PROVIDERS: ADMIT Specialist; ATTEND Specialist
PROC: 0UB70ZZ Excision of Bilateral Fallopian Tubes, Open Approach (ICD-10-PCS; 2017-03-03)
PROC: 10D00Z1 Extraction of Products of Conception, Low, Open Approach (ICD-10-PCS; principal; 2017-03-03 07:30)
DX: O34.211 Maternal care for low transverse scar from previous cesarean delivery (principal); Z30.2 Encounter for sterilization; Z37.0 Single live birth; Z3A.39 39 weeks gestation of pregnancy

== ENCOUNTER → 2017-08-31 | Outpatient (CLI) | payer MEDICAID ==
[~2017-08-31] MED LIST changes: +CEFAZOLIN PO; +DIBU10OI TOP; -DIBU1OI TOP; +IBUP-1022 PO; -IBUP600T26 PO; +KEFL500C17 PO; -KEFL500C7 PO; -MACR100C3 PO; +MACR100C43 PO; +PERC5TAB12 PO; -PERC5TAB6 PO; +PRENTAB9 PO
== END ==
LOC: M OUTALCOH 09:41
PROVIDERS: ATTEND Psychiatry & Neurology Psychiatry
DX: Z13.9 Encounter for screening, unspecified (principal); F12.20 Cannabis dependence, uncomplicated

== ENCOUNTER 2017-10-05 14:23 | Outpatient (RCR) | payer MEDICAID | END 2017-11-02 | LOC: M OUTALCOH 14:23 | DX: F12.20 Cannabis dependence, uncomplicated (principal); F17.200 Nicotine dependence, unspecified, uncomplicated ==

== ENCOUNTER 2017-11-03 14:03 | Emergency (ER) | payer OTHER, MEDICAID ==
[2017-11-03 16:54] LABS: INFLUENZA A AMPLIFICATION POSITIVE (NEGATIVE); INFLUENZA B AMPLIFICATION NEGATIVE (NEGATIVE)
== END 2017-11-03 17:41 | disposition home or self-care (01) ==
LOC: M ED 14:03
DX: J10.1 Influenza due to other identified influenza virus with other respiratory manifestations (principal)
CPT/HCPCS: 87502

== ENCOUNTER 2017-11-16 14:30 | Outpatient (RCR) | payer MEDICAID | END 2017-11-30 | LOC: M OUTALCOH 11-25 16:00 | DX: F12.20 Cannabis dependence, uncomplicated (principal); F17.200 Nicotine dependence, unspecified, uncomplicated ==

== ENCOUNTER 2018-01-11 13:29 | Outpatient (RCR) | payer MEDICAID | END 2018-01-30 | LOC: M OUTALCOH 13:29 | DX: F12.20 Cannabis dependence, uncomplicated (principal); F17.200 Nicotine dependence, unspecified, uncomplicated ==

== ENCOUNTER 2018-02-06 16:03 | Outpatient (RCR) | payer MEDICAID | END 2018-03-02 | LOC: M OUTALCOH 16:03 | DX: F12.20 Cannabis dependence, uncomplicated (principal); F17.200 Nicotine dependence, unspecified, uncomplicated ==

== ENCOUNTER 2018-03-06 09:37 | Outpatient (RCR) | payer MEDICAID | END 2018-04-01 | LOC: M OUTALCOH 03-14 16:00 | DX: F12.20 Cannabis dependence, uncomplicated (principal); F17.200 Nicotine dependence, unspecified, uncomplicated ==

== ENCOUNTER → 2018-03-13 | Outpatient (CLI) | payer OTHER ==
[2018-03-13 11:04] LABS: HEMATOCRIT 34.3 % (36.0-47.0); HEMOGLOBIN 9.8 g/dl (12.0-15.5); MEAN CORPUSCULAR HEMOGLOBIN 20.5 pg (27.0-33.0); MEAN CORPUSCULAR HGB CONC 28.6 g/dl (32.0-36.5); MEAN CORPUSCULAR VOLUME 71.8 fl (80.0-96.0); PLATELET COUNT, AUTOMATED 258 10^3/uL (150-450); RED BLOOD COUNT 4.78 10^6/uL (4.00-5.40); RED CELL DISTRIBUTION WIDTH 16.6 % (11.5-14.5); WHITE BLOOD COUNT 5.4 10^3/uL (4.0-10.0)
[2018-03-13 11:43] LABS: TOTAL 25(OH) VITAMIN D 26.6 NG/ML (30.0-100.0)
[2018-03-13 11:44] LABS: PROLACTIN 6.9 NG/ML
[2018-03-13 11:52] LABS: ALBUMIN 3.9 GM/DL (3.2-5.2); ALBUMIN/GLOBULIN RATIO 1.34 (1.00-1.93); ALKALINE PHOSPHATASE 104 U/L (45-117); ALT/SGPT 13 U/L (12-78); ANION GAP 6 MEQ/L (8-16); AST/SGOT 11 U/L (7-37); BILIRUBIN,TOTAL 0.4 MG/DL (0.2-1.0); BLOOD UREA NITROGEN 11 MG/DL (7-18); CALCIUM LEVEL 8.6 MG/DL (8.5-10.1); CARBON DIOXIDE LEVEL 28 MEQ/L (21-32); CHLORIDE LEVEL 108 MEQ/L (98-107); CREATININE FOR GFR 0.93 MG/DL (0.55-1.30); GLOMERULAR FILTRATION RATE > 60.0 (>60); GLUCOSE, FASTING 70 MG/DL (70-100); SODIUM LEVEL 142 MEQ/L (136-145); THYROID STIMULATING HORMONE 0.866 uIU/ML (0.358-3.740); TOTAL PROTEIN 6.8 GM/DL (6.4-8.2)
== END ==
LOC: M LAB 10:38
DX: F31.9 Bipolar disorder, unspecified (principal)
CPT/HCPCS: 84146

== ENCOUNTER 2018-04-06 10:59 | Emergency (ER) | payer OTHER, MEDICAID | END 2018-04-06 12:35 | disposition home or self-care (01) | LOC: M ED 10:59 | DX: G89.29 Other chronic pain (principal); M54.5 Low back pain; Z79.899 Other long term (current) drug therapy; Z88.8 Allergy status to other drugs, medicaments and biological substances; F17.210 Nicotine dependence, cigarettes, uncomplicated | CPT/HCPCS: 99283 ==

== ENCOUNTER 2018-04-12 10:19 | Outpatient (RCR) | payer MEDICAID | END 2018-05-02 | LOC: M OUTALCOH 05-01 14:00 | DX: F12.20 Cannabis dependence, uncomplicated (principal); F17.200 Nicotine dependence, unspecified, uncomplicated ==

== ENCOUNTER 2018-05-19 10:49 | Emergency (ER) | payer MEDICAID ==
[2018-05-19] MEDS: AUGMENTIN 875 MG TAB PO (11:34)
== END 2018-05-19 11:47 | disposition home or self-care (01) ==
LOC: M ED 10:49
DX: R59.9 Enlarged lymph nodes, unspecified (principal); Z79.899 Other long term (current) drug therapy; Z88.8 Allergy status to other drugs, medicaments and biological substances; F17.210 Nicotine dependence, cigarettes, uncomplicated
CPT/HCPCS: 99282

== ENCOUNTER → 2018-07-06 | Outpatient (CLI) | payer MEDICAID | LOC: M OUTALCOH 12:01 | DX: Z13.89 Encounter for screening for other disorder (principal); F12.20 Cannabis dependence, uncomplicated ==

== ENCOUNTER 2018-07-19 16:00 | Outpatient (RCR) | payer MEDICAID | END 2018-08-02 | LOC: M OUTALCOH 07-26 15:00 | DX: F12.20 Cannabis dependence, uncomplicated (principal); F17.200 Nicotine dependence, unspecified, uncomplicated ==

== ENCOUNTER 2018-07-30 23:37 | Emergency (ER) | payer OTHER, MEDICAID ==
[2018-07-31] MEDS: ACETAMINOPH W/CODEINE #3 TAB UD PO (01:03)
== END 2018-07-31 01:08 | disposition home or self-care (01) ==
LOC: M ED 23:37
DX: S80.02XA Contusion of left knee, initial encounter (principal); W18.31XA Fall on same level due to stepping on an object, initial encounter; Y92.098 Other place in other non-institutional residence as the place of occurrence of the external cause; F90.9 Attention-deficit hyperactivity disorder, unspecified type; G47.00 Insomnia, unspecified; F11.10 Opioid abuse, uncomplicated; F17.200 Nicotine dependence, unspecified, uncomplicated; Z88.6 Allergy status to analgesic agent; Z87.81 Personal history of (healed) traumatic fracture; Z79.899 Other long term (current) drug therapy
CPT/HCPCS: 73564

== ENCOUNTER → 2018-09-07 | Outpatient (REF) | LOC: M SMT 13:03 | DX: Z00.00 Encounter for general adult medical examination without abnormal findings (principal) ==

== ENCOUNTER 2019-08-11 22:12 | Emergency (ER) | payer OTHER ==
[~2019-08-11] VITALS: Ht 157.5 cm; Wt 47.3 kg
[~2019-08-11 22:12] MED LIST changes: +ACET-716 PO; -ACET50TA PO; +AUGM875T28 PO; +BUTA1CAP; +CYCL10TA PO; -DOCU10ELUD PO; +DOCU5LIQ PO; +HYDR-3363 PO; +HYDR50TA70 PO; +LAMO100T PO; +LAMO25TA4 PO; +MAPA500T2 PO; +OSEL75CA PO; +OXYC1TAB23 PO; -PERCOCET PO; +ROBA500T PO; +ZOFR4TAB14 PO
[2019-08-11] MEDS ORDERED: KETOROLAC 60 MG/2 ML VIAL (J1885) IM ONE (23:15)
[2019-08-11 23:27] VITALS: BP 136/92
--- NOTE | 2019-08-12 08:15 | REP ---
Left hand two views : There is no fracture or dislocation. Mineralization and joint spaces are normal. There are no calcifications or foreign bodies. Impression: Negative Left hand . Electronically Signed by Thomas Barker MD 08/12/2019 08:07 A
== END 2019-08-11 23:40 | disposition home or self-care (01) ==
LOC: M ED 22:12
DX: M67.432 Ganglion, left wrist (principal); G56.12 Other lesions of median nerve, left upper limb; G43.909 Migraine, unspecified, not intractable, without status migrainosus; F11.10 Opioid abuse, uncomplicated; Z79.899 Other long term (current) drug therapy; Z88.8 Allergy status to other drugs, medicaments and biological substances
CPT/HCPCS: 73120; 96372; 99284; J1885

== ENCOUNTER 2019-08-28 20:23 | Emergency (ER) | payer OTHER ==
[~2019-08-28] VITALS: Ht 157.5 cm; Wt 47.3 kg
[~2019-08-28 20:23] MED LIST changes: -LAMO100T PO; +LAMO100T3 PO
[2019-08-28] MEDS ORDERED: diphenhydrAMINE INJ 50MG/ML VIAL (J1200) IV ONE (21:00)
[2019-08-28 21:15] LABS: BASO # 0.1 10^3/uL (0.0-0.2); BASO % 0.7 % (0.0-1.0); EOS # 0.1 10^3/uL (0.0-0.5); EOS % 0.7 % (0.0-3.0); HEMATOCRIT 37.3 % (36.0-47.0); HEMOGLOBIN 11.1 g/dl (12.0-15.5); LYMPH # 1.4 10^3/uL (1.5-5.0); LYMPH % 18.4 % (24.0-44.0); MEAN CORPUSCULAR HEMOGLOBIN 23.5 pg (27.0-33.0); MEAN CORPUSCULAR HGB CONC 29.8 g/dl (32.0-36.5); MONO # 0.4 10^3/uL (0.0-0.8); MONO % 5.3 % (0.0-5.0); NEUTROPHILS # 5.6 10^3/uL (1.5-8.5); NEUTROPHILS % 74.6 % (36.0-66.0); PLATELET COUNT, AUTOMATED 309 10^3/uL (150-450); RED BLOOD COUNT 4.72 10^6/uL (4.00-5.40); WHITE BLOOD COUNT 7.5 10^3/uL (4.0-10.0)
[2019-08-28 21:18] LABS: BLOOD UREA NITROGEN 16 MG/DL (7-18); CALCIUM LEVEL 8.7 MG/DL (8.5-10.1); CARBON DIOXIDE LEVEL 26 MEQ/L (21-32); CHLORIDE LEVEL 105 MEQ/L (98-107); CREATININE FOR GFR 0.88 MG/DL (0.55-1.30); GLOMERULAR FILTRATION RATE > 60.0 (>60); GLUCOSE, FASTING 176 MG/DL (70-100); POTASSIUM SERUM 3.8 MEQ/L (3.5-5.1); SODIUM LEVEL 138 MEQ/L (136-145)
[2019-08-28 21:23] LABS: HCG, SERUM QUALITATIVE NEGATIVE (NEGATIVE)
[2019-08-28] MEDS ORDERED: NS 1,000 ML IV ONE (21:45)
[2019-08-28] MEDS ORDERED: FAMOTIDINE INJ 20MG/2ML VIAL (S0028) IVP ONE (21:45)
[2019-08-28] MEDS ORDERED: methylPREDNISolone INJ 125 MG/2 ML VIAL (J2930) IV ONE (22:00)
[2019-08-28 22:31] LABS: ETHYL ALCOHOL (ETHANOL) < 0.003 % (0.000-0.010)
[2019-08-28 23:23] LABS: AMPHETAMINES LEVEL URINE NEGATIVE (NEGATIVE); BARBITURATES URINE NEGATIVE (NEGATIVE); BENZODIAZEPINES URINE NEGATIVE (NEGATIVE); CANNABINOIDS URINE NEGATIVE (NEGATIVE); COCAINE METABOLITE URINE NEGATIVE (NEGATIVE); METHADONE URINE NEGATIVE (NEGATIVE); OPIATES URINE NEGATIVE (NEGATIVE); PHENCYCLIDINE URINE NEGATIVE (NEGATIVE)
[2019-08-29] MEDS ORDERED: PRED20TA PO (00:10)
[2019-08-29 00:24] VITALS: BP 120/80
== END 2019-08-29 00:25 | disposition home or self-care (01) ==
LOC: M ED 20:23
DX: L50.9 Urticaria, unspecified (principal); F33.9 Major depressive disorder, recurrent, unspecified; F41.9 Anxiety disorder, unspecified; G47.00 Insomnia, unspecified; Z79.899 Other long term (current) drug therapy; Z88.8 Allergy status to other drugs, medicaments and biological substances; F17.210 Nicotine dependence, cigarettes, uncomplicated
CPT/HCPCS: 80048; 80307; 81001; 84703; 85025; 87086; 96374; 96375; 99284; G0480; J1200; J2930

== ENCOUNTER → 2020-10-27 | Outpatient (CLI) | payer MEDICAID ==
[~2020-10-27] MED LIST changes: +CYCL-707 PO; -CYCL10TA PO; +PRED20TA PO
== END ==
LOC: M OUTALCOH 12:46
PROVIDERS: ATTEND Psychiatry & Neurology Psychiatry
DX: F15.20 Other stimulant dependence, uncomplicated (principal)

== ENCOUNTER → 2020-11-17 | Outpatient (CLI) | payer OTHER | LOC: M LABSMTC 09:39 | PROVIDERS: ATTEND Pediatrics | DX: Z20.822 Contact with and (suspected) exposure to COVID-19 (principal) | CPT/HCPCS: C9803; U0003 ==

== ENCOUNTER 2020-11-27 10:00 | Outpatient (RCR) | payer MEDICAID | END 2020-11-30 | LOC: M OUTALCOH 10:00 | PROVIDERS: ATTEND Psychiatry & Neurology Psychiatry | DX: F15.20 Other stimulant dependence, uncomplicated (principal); F12.20 Cannabis dependence, uncomplicated; F17.200 Nicotine dependence, unspecified, uncomplicated ==

== ENCOUNTER → 2024-04-23 | Outpatient (CLI) | payer OTHER ==
[~2024-04-23] MED LIST changes: -DIBU10OI TOP; +DIBU28OI2 TOP
== END ==
LOC: M WHC 11:59
PROVIDERS: ATTEND Physician Assistant
DX: N63.10 Unspecified lump in the right breast, unspecified quadrant (principal)